=== PATIENT | female | born 1980 | race Caucasian/White ===

== ENCOUNTER → 2020-02-23 08:13 | Outpatient (BNVA) | payer BC, SELFPAY | PROVIDERS: Visit Provider Obstetrics & Gynecology | DX: N94.6 Dysmenorrhea, unspecified (principal) | CPT/HCPCS: 76830 ==

== ENCOUNTER 2020-04-12 08:16 | Day surgery (SDC) | payer BC, SELFPAY ==
[2020-04-10 09:57] VITALS: BMI 23.9
[2020-04-10 10:44] LABS: Add Urine Microscopic? NO
[2020-04-10 11:06] LABS: Basophils % 0.7 %; Eosinophils # 0.2 10^3/uL (0.0-0.8); Hematocrit 36.6 % (37.0-47.0); Hemoglobin 12.1 g/dL (11.5-15.3); Lymphocytes # 1.6 10^3/uL (0.8-4.8); Lymphocytes % 27.9 %; Mean Corpuscular HGB Conc 33.1 g/dL (30.0-36.0); Mean Corpuscular Hemoglobin 30.5 pg (28.0-34.0); Mean Corpuscular Volume 92.2 fL (81-99); Mean Platelet Volume 10.5 fL (7.4-10.4); Monocytes # 0.5 10^3/uL (0.2-0.9); Neutrophils # 3.35 10^3/uL (1.8-7.7); Neutrophils % 59.2 %; Nucleated Red Blood Cells % 0 %; Platelet Count 220 10^3/cmm (130-400); Red Blood Count 3.97 10^6/uL (4.1-5.3); Red Cell Distribution Width 12.6 % (12.1-15.1); White Blood Count 5.7 10^3/uL (4.0-10.0)
[2020-04-10 11:13] LABS: Bilirubin Urine Neg (NEGATIVE); Blood Urine Neg (Negative); Glucose Urine UA Norm (Normal); Ketones Urine Negative (Negative); Leukocyte Esterase Urine Negative (Negative); Nitrate Urine Negative (Negative); Protein Urine Neg (Negative); Urine Appearance Clear (CLEAR); Urine Color Straw (Yellow); Urobilinogen Urine Norm (Negative); pH Urine 5 (5-7)
[2020-04-10 11:21] LABS: Anion Gap 11.8 (5-19); Blood Urea Nitrogen 23 mg/dL (6-20); Calcium 9.2 mg/dL (8.5-10.5); Carbon Dioxide 26 mmol/L (22-29); Chloride 104 mmol/L (98-107); Glomerular Filtration Rate 93.6 mL/min (90-130); Glucose 91 mg/dL (65-115); Osmolality Calculated 280 mOsm/kg (285-295); Potassium 4.8 mmol/L (3.5-5.1); Sodium 137 mmol/L (136-145)
--- NOTE | 2020-04-10 11:25 | ANES.PREANE2 ---
Pre-Anesthetic Assessment Pre-Anesthetic Assessment: Height/Weight: Height 1.6 m Weight 61.235 kg Preop Diagnosis: Chronic pelvic pain, dysmenorrhea Proposed Procedure: Operation Date: 04/12/20 09:50 Proposed Procedures p Laparoscopy Diagnostic/46097 N94.2 R10.2(Not Applicable) - Octavio Rich MD Familial anesthetic complications: none Social: Social History: No alcohol and No tobacco Exam: Pre-Anes Outpt Exam: alert, oriented x 3, clear to auscultation bilaterally and regular rate & rhythm Airway: Cervical ROM: WNL MP: 1 Dentition: Full CV/HEM: CV/HEM: HTN and Palp Anesthetic Plan: ASA status: 1 Anesthesia: MAC Risk of > 500 ml blood loss (7ml/kg in children): No PFSH Anesthesia PFSH: Medical History Abnormal uterine bleeding (AUB) Pelvic pain diagnostic laparoscopy schedule for April Family History Denies family history of Diabetes Clotting disorder Hyperlipidemia Anesthesia complication Bleeding disorder Hypertension Stroke Social History (Updated 04/10/20 @ 08:21 by Archana Younger RN) Smoking and tobacco status: former smoker Quit status (tobacco): has quit using tobacco Year quit tobacco: 2017 Alcohol intake: current Alcohol intake frequency: holidays/special occasions only Alcohol type: hard liquor Data Anesthesia CBC & Chem 7: 04/10/20 10:15 04/10/20 10:15 Other Labs: Laboratory Results - last 48 hr 04/10/20 04/10/20 04/10/20 10:10 10:15 10:15 WBC 5.7 RBC 3.97 L Hgb 12.1 Hct 36.6 L MCV 92.2 MCH 30.5 MCHC 33.1 RDW 12.6 Plt Count 220 MPV 10.5 H Neut % (Auto) 59.2 Lymph % (Auto) 27.9 [place] % (Auto) 9.0 Eos % (Auto) 3.0 Baso % (Auto) 0.7 Neut # (Auto) 3.35 Lymph # (Auto) 1.6 [place] # (Auto) 0.5 Eos # (Auto) 0.2 Baso # (Auto) 0.0 Nucleated RBC % (auto) 0 Nucleated RBCs # 0.0 Sodium 137 Potassium 4.8 Chloride 104 Carbon Dioxide 26 Anion Gap 11.8 Creatinine 0.7 GFR Calculation 93.6 Glucose 91 Calcium 9.2 Urine Color Straw Urine Appearance Clear Urine pH 5 Ur Specific [place] 1.010 Urine Protein Neg Urine Glucose (UA) Norm Urine Ketones Negative Urine Blood Neg Urine Nitrate Negative Urine Bilirubin Neg Urine Urobilinogen Norm Ur Leukocyte Esterase Negative Cardiac Studies: No Data to Display
[2020-04-10 12:08] LABS: OR HCG Qualitative Urine Negative (Negative)
[2020-04-12] VITALS (8 sets, daily range): BP systolic 112–134; BP diastolic 70–89; PULSE 52–90; RESP 16–18; TEMP 36.2–36.6; O2SAT 100
[2020-04-12] MEDS: sodium chloride 0.9% 1,000 ML 30 ML IV (08:47)
[2020-04-12] MEDS: scopolamine 1.5 Patch 1 PATCH TRANSDERMA (08:48)
--- NOTE | 2020-04-12 08:59 | P.ANESUD_ITS ---
Pre-Anesthetic Update Pre-Anesthetic Assessment: Date of Surgery/Procedure: 04/12/20 Preop Merlyn gnosis: Chronic pelvic pain, dysmenorrhea Proposed Procedure: Operation Date: 04/12/20 09:50 Proposed Procedures p Laparoscopy Diagnostic/25701 N94.2 R10.2(Not Applicable) - Octavio Rich MD Any changes to Pre-Anesthetic Assessment?: No Last Intake: Intake Last Liquid Date 04/11/20 Last Liquid Time 22:00 Last Solid Date 04/11/20 Last Solid Time 22:00 Labs Last 48hrs: Laboratory Results - last 48 hr 04/10/20 04/10/20 04/10/20 10:10 10:10 10:15 WBC 5.7 RBC 3.97 L Hgb 12.1 Hct 36.6 L MCV 92.2 MCH 30.5 MCHC 33.1 RDW 12.6 Plt Count 220 MPV 10.5 H Neut % (Auto) 59.2 Lymph % (Auto) 27.9 [place] % (Auto) 9.0 Eos % (Auto) 3.0 Baso % (Auto) 0.7 Neut # (Auto) 3.35 Lymph # (Auto) 1.6 [place] # (Auto) 0.5 Eos # (Auto) 0.2 Baso # (Auto) 0.0 Nucleated RBC % (a uto) 0 Nucleated RBCs # 0.0 Sodium Potassium Chloride Carbon Dioxide Anion Gap BUN Creatinine GFR Calculation Glucose Calculated Osmolal ity Calcium Urine Color Straw Urine Appearance Clear Urine pH 5 Ur Specific Gravit y 1.010 Urine Protein Neg Urine Glucose (UA) Norm Urine Ketones Negative Urine Blood Neg Urine Nitrate Negative Urine Bilirubin Neg Urine Urobilinogen Norm Ur Leukocyte Yessica ase Negative Urine HCG, Qual Negative Blood Type Rho(D) Type Antibody Screen 04/10/20 04/10/20 10:15 10:15 WBC RBC Hgb Hct MCV MCH MCHC RDW Plt Count MPV Neut % (Auto) Lymph % (Auto) [place] % (Auto) Eos % (Auto) Baso % (Auto) Neut # (Auto) Lymph # (Auto) [place] # (Auto) Eos # (Auto) Baso # (Auto) Nucleated RBC % (a uto) Nucleated RBCs # Sodium 137 Potassium 4.8 Chloride 104 Carbon Dioxide 26 Anion Gap 11.8 BUN 23 H Creatinine 0.7 GFR Calculation 93.6 Glucose 91 Calculated Osmolal ity 280 L Calcium 9.2 Urine Color Urine Appearance Urine pH Ur Specific Gravit y Urine Protein Urine Glucose (UA) Urine Ketones Urine Blood Urine Nitrate Urine Bilirubin Urine Urobilinogen Ur Leukocyte Yessica ase Urine HCG, Qual Blood Type O Positive Rho(D) Type Positive Antibody Screen Negative Exam: Pre-Anes Outpt Exam: alert, oriented x 3, clear to auscultation bilaterally and regular rate & rhythm Other Pertinent Information: Other Pertinent Information: Will get updated b hcg Cardiac Studies: No Data to Display
[2020-04-12 09:12] LABS: OR HCG Qualitative Urine Negative (Negative)
--- NOTE | 2020-04-12 09:16 | W.PM.OPSUD ---
Surgery/Procedure H&P Update DATE OF PROCEDURE: April 12, 2020 DATE H&P PERFORMED: 04/10/20 H&P UPDATE INFORMATION: I have reviewed H&P completed within last 30 days, I have examined patient prior to procedure and No changes to prior documentation PREOP DIAGNOSIS: Chronic pelvic pain, dysmenorrhea PLANNED PROCEDURE: Operation Date: 04/12/20 09:50 Proposed Procedures p Laparoscopy Diagnostic/31003 N94.2 R10.2(Not Applicable) - Octavio Rihc MD
--- NOTE | 2020-04-12 10:19 | P.OP_ITS ---
Operative Report Date of procedure: April 12, 2020 Pre-op Diagnosis: Chronic pelvic pain, dysmenorrhea Post-op diagnosis: same Post-op Findings: Normal pelvic over Procedure Done: Diagnostic laparoscopy Surgeon: Octavio Rich Anesthesia: General Estimated blood loss (mL): 10 IV fluids (mL): 700 Urine output (mL): 100 Complications: none Findings: Normal pelvic organs, small 0.5 cm subserosal posterior Leiomyoma Condition: stable Disposition: PACU Brief History: 40-year-old female with chronic pelvic pain and dysmenorrhea Procedure: DESCRIPTION OF PROCEDURE: After informed consent, the patient was taken to the operating room where general anesthesia was administered. The patient was examined under anesthesia and found to have a normal uterus with normal adnexa. She was placed in the dorsal lithotomy position and prepped and draped in sterile fashion. Pre- Procedure Time-Out verifying the correct patient identity, correct procedure verified with consent, correct site and side, correct patient position, avail ability of correct implants and any special equipment or requirements was performed and acknowledge by the OR team. A weighted speculum was placed in the vagina, and the anterior lip of cervix was grasped with the single toothed tenaculum. A uterine manipulator was advanced into the endocervical. Tenaculum was removed after uterine manipulator was secured. The speculum was removed from the vagina. An intraumbilical incision was made with a scalpel. While tenting up on the abdomen, a Verres needle with sleeve was admitted into the intra-abdominal cavity. A saline drop test was performed and noted to be within normal limits. Pneumoperitoneum was attained with 4 liters of carbon dioxide. The Verres needle was removed. A 5 mm trocar and sleeve were admitted into the abdomen and laparoscopic confirmation of location was achieved, A second incision was made 3 cm above the symphysis pubis, and a 5 mm trocar and sleeve were admitted into the abdomen under direct, laparoscopic visualization without complication. A survey revealed normal abdominal anatomy but pelvic survey a small posterior subserosal leiomyoma,Approximately 0.5 cm otherwise normal uterus, left and right adnexa. No other pelvic pathology noted. A 5 mm blunt probe was advanced through the second trocar sleeve, and light manipulation of ovaries and uterus to assess the posterior aspects was performed. Carbon dioxide was allowed to escape from the abdomen. The instruments were removed, and skin cover with a bandage. The instruments were removed from the vagina, and excellent hemostasis was noted. The patient tolerated the procedure well, and sponge, lap and needle count were correct times two. The patient taken to the recovery room in good condition.
[2020-04-12] MEDS: fentaNYL 50 mcg/mL INJ 2mL IVP (10:36)
[2020-04-12] MEDS: HYDROcodone-acetaminophen 5-325 mg Tablet 1 TAB PO (11:03)
== END 2020-04-12 12:05 | disposition home or self-care (01) ==
PROVIDERS: Anesthesiology; PCP Nurse Practitioner Family; Visit Provider Obstetrics & Gynecology
PROC: (CPT 49320; principal; 2020-04-12 09:50)
DX: D25.2 Subserosal leiomyoma of uterus (principal); N94.6 Dysmenorrhea, unspecified; I10 Essential (primary) hypertension; Z87.891 Personal history of nicotine dependence
CPT/HCPCS: 49320; 12345; 36415; 80048; 81003; 81025; 84703; 85025; 86850; 86900; J0690; J2704; J3010; J3490; J7030

== ENCOUNTER → 2020-05-04 07:54 | Outpatient (BNVA) | payer BC, SELFPAY | PROVIDERS: PCP Nurse Practitioner Family; Visit Provider Licensed Practical Nurse | DX: M54.5 Low back pain (principal) | CPT/HCPCS: 99203 ==

== ENCOUNTER → 2020-05-23 09:17 | Outpatient (BNVA) | payer BC, SELFPAY | PROVIDERS: PCP Nurse Practitioner Family; Visit Provider Licensed Practical Nurse | DX: M54.5 Low back pain (principal); M54.9 Dorsalgia, unspecified; G89.29 Other chronic pain | CPT/HCPCS: 99213 ==

== ENCOUNTER 2020-05-31 13:20 | Outpatient (CLI) | payer BC, SELFPAY ==
--- NOTE | 2020-05-31 13:30 | XR_ITS ---
WS: [id number] LUMBAR SPINE FLEXION AND EXTENSION TECHNIQUE: 3 views of the lumbar spine: Lateral neutral, flexion, and extension views. CLINICAL INFORMATION: Low back pain COMPARISON: None. FINDINGS: Normal lumbar alignment on the neutral view. No instability on the flexion and extension views. XR/XR lumbar spine f/e only [id number] IMPRESSION: No instability on flexion-extension
== END 2020-05-31 13:21 | disposition home or self-care (01) ==
LOC: RADWPI 13:23
PROVIDERS: Family Provider Nurse Practitioner Family; PCP Nurse Practitioner Family; Visit Provider Licensed Practical Nurse
DX: M54.5 Low back pain (principal)
CPT/HCPCS: 72120

== ENCOUNTER → 2020-06-22 08:37 | Outpatient (BNVA) | payer BC, SELFPAY | PROVIDERS: Family Provider Nurse Practitioner Family; PCP Nurse Practitioner Family; Referring Provider Licensed Practical Nurse; Visit Provider Anesthesiology Pain Medicine | DX: M54.16 Radiculopathy, lumbar region (principal); F17.290 Nicotine dependence, other tobacco product, uncomplicated; Z79.891 Long term (current) use of opiate analgesic | CPT/HCPCS: 99203 ==

== ENCOUNTER → 2020-07-19 10:39 | Outpatient (BNVA) | payer BC, SELFPAY | PROVIDERS: Family Provider Nurse Practitioner Family; PCP Nurse Practitioner Family; Visit Provider Licensed Practical Nurse | DX: M54.5 Low back pain (principal); M79.604 Pain in right leg; M79.605 Pain in left leg; F17.290 Nicotine dependence, other tobacco product, uncomplicated | CPT/HCPCS: 99213 ==

== ENCOUNTER → 2020-08-21 13:42 | Outpatient (BNVA) | payer BC, SELFPAY | PROVIDERS: Family Provider Nurse Practitioner Family; PCP Nurse Practitioner Family; Visit Provider Specialist | DX: M46.1 Sacroiliitis, not elsewhere classified (principal); R20.0 Anesthesia of skin; R20.2 Paresthesia of skin; F17.200 Nicotine dependence, unspecified, uncomplicated | CPT/HCPCS: 20552; 95910; 99214 ==

== ENCOUNTER → 2021-02-27 08:25 | Outpatient (BNVA) | payer OTHER, SELFPAY | PROVIDERS: Family Provider Nurse Practitioner Family; PCP Nurse Practitioner Family; Visit Provider Specialist | DX: M54.5 Low back pain (principal); M46.1 Sacroiliitis, not elsewhere classified; R20.0 Anesthesia of skin; R20.2 Paresthesia of skin; Z71.89 Other specified counseling; F17.290 Nicotine dependence, other tobacco product, uncomplicated | CPT/HCPCS: 99214 ==

== ENCOUNTER → 2021-06-22 13:18 | Outpatient (BNVA) | payer OTHER, SELFPAY | PROVIDERS: Family Provider Nurse Practitioner Family; PCP Nurse Practitioner Family; Visit Provider Obstetrics & Gynecology | DX: Z12.4 Encounter for screening for malignant neoplasm of cervix (principal) | CPT/HCPCS: 87624 ==

== ENCOUNTER → 2022-06-25 13:28 | Outpatient (BNVA) | payer OTHER, SELFPAY | PROVIDERS: Family Provider Nurse Practitioner Family; PCP Nurse Practitioner Family; Visit Provider Obstetrics & Gynecology | DX: Z12.4 Encounter for screening for malignant neoplasm of cervix (principal); Z12.39 Encounter for other screening for malignant neoplasm of breast; Z01.419 Encounter for gynecological examination (general) (routine) without abnormal findings | CPT/HCPCS: 87624 ==

== ENCOUNTER 2022-07-09 13:24 | Outpatient (CLI) | payer OTHER, SELFPAY ==
--- NOTE | 2022-07-09 13:38 | MM_ITS ---
WS: [id number] BILATERAL 3D TOMOSYNTHESIS DIGITAL SCREENING MAMMOGRAPHY WITH CAD CLINICAL INFORMATION: Z12.39 - Encounter for other screening for malignant neop... HISTORY: Screening mammogram. Bilateral breast soreness COMPARISON: 2019 TECHNIQUE: Bilateral CC and MLO views. FINDINGS: The breasts are composed of heterogeneous fibroglandular density tissue, which can limit the detectio n of small underlying mass lesions. No suspicious mass, asymmetry, calcifications, or architectural d istortion. No evidence of malignancy. A few incidental punctate calcifications. MM/[place] [id number] IMPRESSION: BI-RADS: 2-Benign FOLLOW UP: 1 Year Follow-up Recommend return to annual screening mammography.
== END 2022-07-09 13:25 | disposition home or self-care (01) ==
PROVIDERS: PCP Nurse Practitioner Family; Visit Provider Obstetrics & Gynecology
DX: Z12.31 Encounter for screening mammogram for malignant neoplasm of breast (principal)
CPT/HCPCS: 77063; 77067

== ENCOUNTER 2022-09-15 10:56 | Emergency (ER) | payer OTHER, MEDICAID, SELFPAY ==
[2022-09-15 11:00] VITALS: BP 134/84; PULSE 84; RESP 16; TEMP 36.4; O2SAT 100
[2022-09-15 11:10] VITALS: BP 134/84; PULSE 84; RESP 16; TEMP 36.4; O2SAT 100
--- NOTE | 2022-09-15 11:27 | XRR_ITS ---
PROCEDURE INFORMATION: Exam: XR Right Shoulder Exam date and time: 09/15/2022 11:40 AM Age: 42 years old Clinical indication: Pain; Shoulder; Right; Additional info: Right shoulder pain TECHNIQUE: Imaging protocol: Radiologic exam of the Right shoulder. Views: 2 or more views. COMPARISON: CT cervical spin wo con* [id number] 10/04/2016 4:44 PM FINDINGS: Bones/joints: Osseous structures are intact. Negative for fracture. Joint spaces are preserved. Soft tissues: Normal. XR/XR shoulder RT min 2V* [id number] IMPRESSION: No acute findings.
--- NOTE | 2022-09-15 11:27 | XRR_ITS ---
PROCEDURE INFORMATION: Exam: XR Cervical Spine Exam date and time: 09/15/2022 11:42 AM Age: 42 years old Clinical indication: Neck pain; Additional info: Radiculopathy and neck pain TECHNIQUE: Imaging protocol: Radiologic exam of the cervical spine. Views: 2 or 3 views. COMPARISON: CT cervical spin wo con* [id number] 10/04/2016 4:44 PM FINDINGS: Bones/joints: Normal. No acute fracture. Normal alignment. Vertebral body and disc heights are preserved. Soft tissues: Unremarkable. XR/XR cervical spine fl/ex [id number] IMPRESSION: No acute findings.
[2022-09-15] MEDS: dexamethasone 10 mg/mL INJ IM (11:46)
[2022-09-15] MEDS: ketorolac 60 mg/2 mL INJ IM (11:48)
[2022-09-15] MEDS: orphenadrine 30 mg/mL Inj 2 mL 60 MG IM (11:48)
--- NOTE | 2022-09-15 12:37 | W.ED.EXTPRO ---
Documented by User: [email or web address] Crabtree 09/15/22 12:56 HPI - Extremity Problem General: Chief complaint: Extremity Injury, Upper Stated complaint: shoulder pain Time Seen by Provider: 09/15/22 10:58 History of Present Illness: Patient is a [id number] 42-year-old female that presents to the emergency department with complaints of right shoulder and neck pain. Patient reports that symptoms began after she was doing some heavy lifting on Friday. She woke up Friday morning with some achiness in her shoulder and some neck pain just off midline on the right trapezius. Patient states that she is taken ibuprofen, tramadol, Flexeril without any relief. Patient describes the pain as burning sensation and spasm Patient reports a history of migraines, fibromyalgia, arrhythmias, arthritis Associated symptoms: Deny chest pain, fever(s) or rash Review of Systems General: Reports: 10 or more systems reviewed and unremarkable except in HPI and below Const: Denies: fever(s), chills, change in appetite, change in weight, fatigue or malaise Eyes: Denies: change in vision, eye discomfort, eye discharge or eye redness ENMT: Denies: throat pain, enlarged tonsils, odynophagia, hoarseness, ear or mastoid pain, ear discharge, change in hearing, tinnitus, nasal discharge, nasal congestion, post nasal drip or sinus pain Card: Denies: chest pain, palpitations, irregular heart rhythm, edema, dyspnea on exertion, orthopnea or leg pain with exertion Resp: Denies: dyspnea, productive cough, non-productive cough, wheezing, stridor or chest congestion GI: Denies: abdominal pain, nausea, vomiting, dysphagia, diarrhea, constipation, bloating, GI cramping or hematochezia : Denies: flank pain, difficulty voiding, dysuria, urinary frequency, urinary urgency, urinary hesitancy, oliguria or hematuria Musc: Denies: neck pain, back pain, extremity pain, joint pain, joint swelling, joint redness, joint warmth or muscle weakness Skin/Breast: Denies: rash, pruritus, erythema, photosensitivity or new lesions Neuro: Denies: headache(s), numbness in extremities, weakness in extremities, sensory changes, lack of coordination, difficulty walking, frequent falls, dizziness, confusion, Slurred speech present, difficulty communicating thoughts, seizure-like activity or involuntary movements Endo: Denies: polyuria, polydipsia or tired all the time Sukhwinder/Lymph: Denies: easy bruising or easy bleeding PFSH ED PFSH: Medical History Abnormal uterine bleeding (AUB) Leg pain, bilateral Low back pain of over 3 months duration Pelvic pain diagnostic laparoscopy schedule for April Surgical History H/O dilation and curettage x2 H/O laparoscopy Family History (Updated 06/25/22 @ 13:23 by Archana Younger RN) Denies family history of Colon cancer Ovarian cancer Diabetes Clotting disorder Heart disease Hyperlipidemia Breast cancer Anesthesia complication Bleeding disorder Hypertension Uterine cancer Thyroid condition Stroke Social History (Updated 06/25/22 @ 13:23 by Archana Younger RN) Smoking and tobacco status: former smoker Physical Exam Narrative: EXAM NARRATIVE: No acute distress Alert x3 Afebrile vital signs stable Const: COMMON NORMALS: no acute distress, average body habitus and patient oriented x3 HENMT: COMMON NORMALS: normocephalic and atraumatic HEAD & SCALP: normocephalic and atraumatic FACE & SINUS: normal facial exam Eye: COMMON NORMALS: Equal, round and reactive pupils present, EOMs intact bilaterally and conjunctivae normal CONJUNCTIVA: Yes conjunctivae normal PUPIL: Yes Equal, round and reactive pupils present Neck/C-Spine: GENERAL: Yes normal visual inspection, Yes trachea midline and Yes tender CERVICAL SPINE: Yes cervical ROM normal, Yes Paracervical muscle tenderness right>left and Yes Trapezius muscle tenderness bilateral OTHER: Patient reports a numbness and tingling that radiates along the C5/C6 nerve distribution of the right upper extremity She is tender over the trapezius Patient has 5/5 strength in intrinsics, 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, 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, triceps Resp: COMMON NORMALS: normal respiratory effort, No retractions and No use of accessory muscles Cardio: COMMON NORMALS: regular rate and regular rhythm RATE: regular rate RHYTHM: regular rhythm GI: COMMON NORMALS: Normal to inspection, nondistended, normoactive bowel sounds present Extremity: NARRATIVE EXTREMITY EXAM: Right upper extremity: Skin is clean dry and intact Mild crepitus to anterior right shoulder Full active range of motion of shoulder, elbow, wrist Active flexion and extension of the joints without difficulty Patient is able to give a thumbs up, make an okay sign, cross fingers, abduct fingers and make a fist Sensations intact to light touch at radial, median, ulnar nerve distribution Cap refill less than 3 seconds and radial pulses palpable Neuro: COMMON NORMALS: patient oriented x3 Course Vital Signs: Vital signs: Vital Signs Temperature 97.6 F 09/15/22 11:10 Pulse Rate 77 09/15/22 13:09 Respiratory Rate 18 09/15/22 13:09 Blood Pressure 134/84 09/15/22 11:10 Pulse Oximetry 99 09/15/22 13:09 Oxygen Delivery Me thod 09/15/22 11:10 MDM - Extremity (Nontraumatic) Medical Decision Making Patient was evaluated in the emergency department today for complaints of neck and shoulder pain. Patient did undergo XR imaging of the neck and shoulder to assess for any injury, effusions, bony abnormality. No acute findings noted. Differential diagnosis includes musculoskeletal complaints, muscle spasms, nerve root impingement Cervical strain, muscle spasm, radicular symptoms were present. I treated her with Toradol, Norflex, Decadron. Symptoms improved greatly. Patient never did exhibit any restricted joint mobility nor any weakness in her extremities. I did explain to the patient I did not think she warranted any further diagnostics at this time. Patient is agreeable. Patient is can go home on a new muscle relaxer, with some prednisone and Toradol. If patient does not better in 7 to 10 days or is getting worse then she will need to follow-up sooner. Lab Data Radiology Impressions Shoulder X-Ray 09/15/22 11:27 IMPRESSION: No acute findings. Spine Flexion/Extension X-Ray 09/15/22 11:27 IMPRESSION: No acute findings. Discharge Plan Discharge Patient Disposition: Home Clinical Impression: Sprain of cervical neck, Cervical paraspinal muscle spasm Condition: Stable Prescriptions: New prednisone 50 mg tablet 50 mg PO DAILY 5 Days Qty: 5 0RF ketorolac 10 mg tablet 10 mg PO TID PRN (Reason: pain) 5 Days Qty: 20 0RF methocarbamol 500 mg tablet 500 mg PO Q6H Qty: 60 0RF No Action rizatriptan PO .prn Zyrtec 10 mg capsule 20 mg PO DAILY cyclobenzaprine 10 mg tablet 10 mg PO TID PRN (Reason: Anxiety) ibuprofen 800 mg tablet 800 mg PO TID PRN (Reason: Pain) tramadol [Ultram] 50 mg tablet 50 mg PO DAILY PRN (Reason: Pain) metoprolol succinate 50 mg capsule,sprinkle,ER 24hr 50 mg PO DAILY alprazolam [Xanax] 0.5 mg tablet 0.25 mg PO BID PRN thrive chocolate lifestyle mix as directed Discharge Orders: Discharge ED (Routine); Ordered 09/15/22 Ordered By: Digna Lynn Referrals: Jonas,CASI Lunsford [Primary Care Provider] - Discharge Diet: Advance as tolerated Discharge Activity: Resume usual activity Patient Instructions: Cervical Strain (ED), Acute Neck Pain (ED), Exercise Safety (ED), Pain Management Activity Restrictions/Additional Instructions: I have prescribed you Toradol, Robaxin, prednisone Taking Toradol, do not take ibuprofen or naproxen Taking Robaxin do not take Flexeril. When taking the Robaxin, it is written to take 1 tablet every 4-6 hours. You can actually take up to 2 but this will likely make you more sleepy. Use a heating pad or ice, whichever is more comfortable, to help sooth those sore muscles Gentle exercise/stretching If you are not better in 7 to 10 days or if you are getting worse, you need to be reevaluated. If you develop any weakness in your upper extremities you need to be reevaluated. Stand Alone Forms: Work/School Release Coding Level of Care Code ED Hearing Health Technician for Chg Fwd Exam Detailed Medical Decision Making Low Complexity Documented by User: Jj Pimentel DO 09/16/22 06:07 HPI - Extremity Problem General: Chief complaint: Extremity Injury, Upper Stated complaint: shoulder pain Time Seen by Provider: 09/15/22 10:58 PFS ED PFSH: Medical History Abnormal uterine bleeding (AUB) Leg pain, bilateral Low back pain of over 3 months duration Pelvic pain diagnostic laparoscopy schedule for April Surgical History H/O dilation and curettage x2 H/O laparoscopy Family History (Updated 06/25/22 @ 13:23 by Archana Younger RN) Denies family history of Colon cancer Ovarian cancer Diabetes Clotting disorder Heart disease Hyperlipidemia Breast cancer Anesthesia complication Bleeding disorder Hypertension Uterine cancer Thyroid condition Stroke Social History (Updated 06/25/22 @ 13:23 by Archana Younger RN) Smoking and tobacco status: former smoker Course Vital Signs: Vital signs: Vital Signs Temperature 97.6 F 09/15/22 11:10 Pulse Rate 77 09/15/22 13:09 Respiratory Rate 18 09/15/22 13:09 Blood Pressure 134/84 09/15/22 11:10 Pulse Oximetry 99 09/15/22 13:09 Oxygen Delivery Me thod 09/15/22 11:10 MDM - Extremity (Nontraumatic) Medical Decision Making Patient was evaluated in the emergency department today for complaints of neck and shoulder pain. Patient did undergo XR imaging of the neck and shoulder to assess for any injury, effusions, bony abnormality. No acute findings noted. Differential diagnosis includes musculoskeletal complaints, muscle spasms, nerve root impingement Cervical strain, muscle spasm, radicular symptoms were present. I treated her with Toradol, Norflex, Decadron. Symptoms improved greatly. Patient never did exhibit any restricted joint mobility nor any weakness in her extremities. I did explain to the patient I did not think she warranted any further diagnostics at this time. Patient is agreeable. Patient is can go home on a new muscle relaxer, with some prednisone and Toradol. If patient does not better in 7 to 10 days or is getting worse then she will need to follow-up sooner. Chart reviewed and patient discussed with midlevel. Agree with assessment and plan. Lab Data Radiology Impressions Shoulder X-Ray 09/15/22 11:27 IMPRESSION: No acute findings. Spine Flexion/Extension X-Ray 09/15/22 11:27 IMPRESSION: No acute findings. Discharge Plan Discharge Patient Disposition: Home Clinical Impression: Sprain of cervical neck, Cervical paraspinal muscle spasm Condition: Stable Prescriptions: New prednisone 50 mg tablet 50 mg PO DAILY 5 Days Qty: 5 0RF ketorolac 10 mg tablet 10 mg PO TID PRN (Reason: pain) 5 Days Qty: 20 0RF methocarbamol 500 mg tablet 500 mg PO Q6H Qty: 60 0RF No Action rizatriptan PO .prn Zyrtec 10 mg capsule 20 mg PO DAILY cyclobenzaprine 10 mg tablet 10 mg PO TID PRN (Reason: Anxiety) ibuprofen 800 mg tablet 800 mg PO TID PRN (Reason: Pain) tramadol [Ultram] 50 mg tablet 50 mg PO DAILY PRN (Reason: Pain) metoprolol succinate 50 mg capsule,sprinkle,ER 24hr 50 mg PO DAILY alprazolam [Xanax] 0.5 mg tablet 0.25 mg PO BID PRN thrive chocolate lifestyle mix as directed Discharge Orders: Discharge ED (Routine); Ordered 09/15/22 Ordered By: Digna Lynn Referrals: Jonas,CASI Lunsford [Primary Care Provider] - Discharge Diet: Advance as tolerated Discharge Activity: Resume usual activity Patient Instructions: Cervical Strain (ED), Acute Neck Pain (ED), Exercise Safety (ED), Pain Management Activity Restrictions/Additional Instructions: I have prescribed you Toradol, Robaxin, prednisone Taking Toradol, do not take ibuprofen or naproxen Taking Robaxin do not take Flexeril. When taking the Robaxin, it is written to take 1 tablet every 4-6 hours. You can actually take up to 2 but this will likely make you more sleepy. Use a heating pad or ice, whichever is more comfortable, to help sooth those sore muscles Gentle exercise/stretching If you are not better in 7 to 10 days or if you are getting worse, you need to be reevaluated. If you develop any weakness in your upper extremities you need to be reevaluated. Stand Alone Forms: Work/School Release Coding Level of Care Code ED Hearing Health Technician for Roverto Fwd Exam Detailed Medical Decision Making Low Complexity
[2022-09-15 13:09] VITALS: PULSE 77; RESP 18; O2SAT 99
== END 2022-09-15 13:10 | disposition home or self-care (01) ==
PROVIDERS: Emergency Provider Nurse Practitioner; PCP Nurse Practitioner Family
DX: S13.4XXA Sprain of ligaments of cervical spine, initial encounter (principal); M62.838 Other muscle spasm; Z87.891 Personal history of nicotine dependence; X50.0XXA Overexertion from strenuous movement or load, initial encounter
CPT/HCPCS: 72040; 73030; 96372; 99284; J1100; J1885; J2360

== ENCOUNTER 2023-07-30 15:12 | Outpatient (CLI) | payer MEDICAID, SELFPAY ==
--- NOTE | 2023-07-30 15:52 | MM_ITS ---
WS: [id number] BILATERAL 3D TOMOSYNTHESIS DIGITAL SCREENING MAMMOGRAPHY WITH CAD CLINICAL INFORMATION: SCREENING HISTORY: Screening mammogram. No current complaints. COMPARISON: 2021 TECHNIQUE: Bilateral CC and MLO views. FINDINGS: The breasts are composed of nodular heterogeneous fibroglandular density tissue, which can limit the detection of small underlying mass lesions. No suspicious mass, asymmetry, calcifications, or archite ctural distortion. No evidence of malignancy. A few incidental punctate calcifications. IMPRESSION: MM/[place] [id number] BI-RADS: 2-Benign FOLLOW UP: 1 Year Follow-up Recommend return to annual screening mammography.
== END 2023-07-30 15:13 | disposition home or self-care (01) ==
PROVIDERS: PCP Nurse Practitioner Family; Visit Provider Nurse Practitioner Family
DX: Z12.31 Encounter for screening mammogram for malignant neoplasm of breast (principal)
CPT/HCPCS: 77063; 77067

== ENCOUNTER → 2024-01-08 10:45 | Outpatient (BNVA) | payer MEDICAID, SELFPAY | PROVIDERS: PCP Nurse Practitioner Family; Visit Provider Obstetrics & Gynecology | DX: Z12.4 Encounter for screening for malignant neoplasm of cervix (principal); B37.31 Acute candidiasis of vulva and vagina; Z01.419 Encounter for gynecological examination (general) (routine) without abnormal findings | CPT/HCPCS: 87624 ==

== ENCOUNTER 2024-03-06 18:58 | Inpatient (IN) | payer MEDICAID, SELFPAY ==
[2024-03-06 19:13] VITALS: BP 128/85; PULSE 76; RESP 17; TEMP 36.8; O2SAT 99; BMI 23.9
[2024-03-06 19:50] VITALS: BP 111/79; PULSE 77; RESP 22; O2SAT 98
--- NOTE | 2024-03-06 20:07 | ED_ITS ---
HPI - General Adult 2 General: Chief complaint: General Medical Stated complaint: Withdraw Time Seen by Provider: 03/06/24 19:29 History of Present Illness: 44-year-old female who evidently has bee n on morphine for quite some time. Her last use was around 2 days ago she says. She has become ill with diarrhea, chills, body aches, spasms, and anxiety. She has had the symptoms before with prior episodes of withdrawal, but not this bad. Other health problems include migraines, fibromyalgia. She has become increasingly depressed over the last few weeks, and is quite tearful. Associated symptoms: Reports headache(s) and nausea; Deny chest pain, dyspnea, rash or vomiting Review of Systems 2 Const: Reports: body aches, change in appetite and fatigue; Denies: fever(s) Card: Denies: chest pain Resp: Denies: dyspnea or productive cough GI: Reports: abdominal pain, nausea and diarrhea; Denies: vomiting Musc: Reports: back pain Skin/Breast: Denies: rash Neuro: Reports: headache(s) Psych: Reports: anxiety and depression PFS ED 2 PFSH: Medical History Leg pain, bilateral Low back pain of over 3 months duration Abnormal uterine bleeding (AUB) Pelvic pain diagnostic laparoscopy schedule for April Surgical History H/O dilation and curettage x2 H/O laparoscopy Family History Denies family history of Colon cancer Ovarian cancer Diabetes Clotting disorder Heart disease Hyperlipidemia Breast cancer Anesthesia complication Bleeding disorder Hypertension Uterine cancer Thyroid disease Stroke Social History Smoking and tobacco/nicotine status: former use of tobacco/nicotine Substance/Drug Use: never Physical Exam 2 Const: GENERAL APPEARANCE: cooperative, anxious and ill appearing; not frail appearing HENMT: COMMON NORMALS: normocephalic, atraumatic and Normal external nose present HEAD & SCALP: normocephalic and atraumatic FACE & SINUS: normal facial exam and face symmetric NOSE: Normal external nose present Eye: COMMON NORMALS: Equal, round and reactive pupils present and EOMs intact bilaterally PUPIL: Yes Equal, round and reactive pupils present Neck/C-Spine: GENERAL: Yes trachea midline Chest: CHEST: Yes Symmetrical chest wall rise Resp: COMMON NORMALS: normal respiratory effort, No retractions, No use of accessory muscles and clear to auscultation bilaterally AUSCULTATION: clear to auscultation bilaterally Cardio: COMMON NORMALS: regular rate and regular rhythm RATE: regular rate RHYTHM: regular rhythm GI: COMMON NORMALS: Normal to inspection, nondistended, normoactive bowel sounds present Extremity: COMMON NORMALS: no pedal edema Neuro: MARINE COMA SCALE: document GCS findings Marine coma scale eye opening: Spontaneous [place] coma scale verbal response: Orientated [place] coma scale motor response: [place]bey commands Marine coma scale total score: 15 S ENSORY EXAM: Yes extremities (intact) Psych: COMMON NORMALS: speech normal SPEECH: Yes normal speech Skin: COMMON NORMALS: no rashes or lesions noted GENERAL SKIN EXAM: no rashes or lesions noted Course 2 Vital Signs: Vital signs: Vital Signs Temperature 98.2 F 03/06/24 19:13 Pulse Rate 82 03/06/24 22:43 Respiratory Rate 18 03/06/24 22:43 Blood Pressure 118/72 03/06/24 22:43 Pulse Oximetry 99 03/06/24 22:43 Oxygen Delivery Me thod Room Air 03/06/24 22:43 [facility] - General Adult Medical Decision Making 44-year-old female presenting with some withdrawal symptoms. She also has worsening depression. She is quite tearful on exam. She will not give me a clear answer regarding suicidality. I believe she is at risk, especially given her more acute problem. I spoke with psychiatry. He is willing to admit. Potassium was a bit low, and is repleted in the emergency department. Other laboratory is not remarkable. Medically, she is quite stable. Lab Data 03/06/24 20:04 03/06/24 20:04 Laboratory Results WBC 9.51 10^3/uL (3.29-11.43) 03/06/24 20:04 RBC 4.34 10^6/uL (3.85-5.65) 03/06/24 20:04 Hgb 12.90 g/dL (11.27-16.99) 03/06/24 20:04 Hct 38.7 % (36-47) 03/06/24 20:04 MCV 89.2 fl (85-98) 03/06/24 20:04 MCH 29.7 pg (27-33) 03/06/24 20:04 MCHC 33.3 g/dL (30-55) 03/06/24 20:04 RDW 12.2 % (12.1-15.1) 03/06/24 20:04 Plt Count 264 10^3/cmm (157-399) 03/06/24 20:04 MPV 9.8 fL (7.4-10.4) 03/06/24 20:04 Neut % (Auto) 77.5 % 03/06/24 20:04 Lymph % (Auto) 13.7 % 03/06/24 20:04 [place]ane % (Auto) 8.1 % 03/06/24 20:04 Eos % (Auto) 0.3 % 03/06/24 20:04 Baso % (Auto) 0.1 % 03/06/24 20:04 Neut # (Auto) 7.37 10^3/uL (1.8-7.7) 03/06/24 20:04 Lymph # (Auto) 1.3 10^3/uL (0.8-4.8) 03/06/24 20:04 Crane # (Auto) 0.8 10^3/uL (0.2-0.9) 03/06/24 20:04 Eos # (Auto) 0.0 10^3/uL (0.0-0.8) 03/06/24 20:04 Baso # (Auto) 0.0 10^3/uL (0.0-0.1) 03/06/24 20:04 Nucleated RBC % (auto) 0 % 03/06/24 20:04 Nucleated RBCs # 0.0 /100WBC 03/06/24 20:04 Sodium 138 mmol/L (136-145) 03/06/24 20:04 Potassium 3.3 mmol/L (3.5-5.1) L 03/06/24 20:04 Chloride 102 mmol/L (98-107) 03/06/24 20:04 Carbon Dioxide 23 mmol/L (22-29) 03/06/24 20:04 Anion Gap 16.3 (5-19) 03/06/24 20:04 BUN 17 mg/dL (6-20) 03/06/24 20:04 Creatinine 0.6 mg/dL (0.5-0.9) 03/06/24 20:04 GFR Calculation 109.6 mL/min (90-130) 03/06/24 20:04 Glucose 94 mg/dL (65-115) 03/06/24 20:04 Calculated Osmolality 287 mOsm/kg (285-295) 03/06/24 20:04 Lactic Acid 0.8 mmol/L (0.5-2.2) 03/06/24 20:04 Calcium 9.4 mg/dL (8.5-10.5) 03/06/24 20:04 Total Bilirubin 0.4 mg/dL (0.15-1.2) 03/06/24 20:04 AST 25 U/L (0-32) 03/06/24 20:04 ALT 19 U/L (0-33) 03/06/24 20:04 Alkaline Phosphatase 64 U/L (35-105) 03/06/24 20:04 C-Reactive Protein 4.6 mg/L (0.0-4.9) 03/06/24 20:04 Total Protein 7.6 g/dL (6.6-8.7) 03/06/24 20:04 Albumin 4.5 g/dL (3.5-5.2) 03/06/24 20:04 Globulin 3.1 g/dL (1.3-4.6) 03/06/24 20:04 Lipase 22 U/L (13-60) 03/06/24 20:04 HCG, Qual Negative (Negative) 03/06/24 20:04 Urine Color Yellow (Yellow) 03/06/24 20:24 Urine Appearance Clear (CLEAR) 03/06/24 20:24 Urine pH 5 (5-7) 03/06/24 20:24 Ur Specific [place] 1.015 (1.005-1.030) 03/06/24 20:24 Urine Protein Trace (Negative) 03/06/24 20:24 Urine Glucose (UA) Norm (Normal) 03/06/24 20:24 Urine Ketones 2+ (Negative) H 03/06/24 20:24 Urine Blood 3+ (Negative) H 03/06/24 20:24 Urine Nitrate Negative (Negative) 03/06/24 20:24 Urine Bilirubin Neg (Negative) 03/06/24 20:24 Urine Urobilinogen Neg mg/dL (Negative) 03/06/24 20:24 Ur Leukocyte Esterase Negative (Negative) 03/06/24 20:24 Urine RBC 0-4 /hpf (0-2) H 03/06/24 20:24 Urine WBC 5-10 /hpf (0-5) H 03/06/24 20:24 Ur Squamous Epith Cells 5-10 /hpf (0-5) H 03/06/24 20:24 Amorphous Sediment Not Reportable 03/06/24 20:24 Urine Bacteria 2+ /hpf (NONE) H 03/06/24 20:24 Hyaline Casts 0-4 /lpf H 03/06/24 20:24 Urine Mucus 2+ /hpf 03/06/24 20:24 Salicylates < 0.3 mg/dL (3-10) L 03/06/24 20:04 Urine Opiates Screen Negative ng/mL (Negative) 03/06/24 20:24 Acetaminophen < 5.0 ug/mL (10-30) L 03/06/24 20:04 Ur Barbiturates Screen Negative ng/mL (Negative) 03/06/24 20:24 Ur Phencyclidine Scrn Negative ng/mL (Negative) 03/06/24 20:24 Ur Amphetamines Screen Negative ng/mL (Negative) 03/06/24 20:24 U Benzodiazepines Scrn Positive ng/mL (Negative) H 03/06/24 20:24 Urine Cocaine Screen Negative ng/mL (Negative) 03/06/24 20:24 U Marijuana (THC) Screen Positive ng/mL (Negative) H 03/06/24 20:24 Ethyl Alcohol < 10 mg/dL (0-10) 03/06/24 20:04 All radiology interpretation(s) finalized by discharge Discharge Plan Discharge Patient Disposition: Admitted As Inpatient Admit Provider: Javi Watkins Clinical Impression: Depression Condition: Stable Coding Level of Care Code ED [employer] for [employer]
[2024-03-06] MEDS: sodium chloride 0.9% 1,000 ML 999 ML IV (20:14)
[2024-03-06] MEDS: ketorolac 30 mg/mL INJ IVP (20:14)
[2024-03-06] MEDS: ondansetron 2 mg/ML SDV 2 mL 4 MG IVP (20:14)
[2024-03-06 20:21] LABS: Basophils % 0.1 %; Eosinophils % 0.3 %; Hematocrit 38.7 % (36-47); Lymphocytes # 1.3 10^3/uL (0.8-4.8); Lymphocytes % 13.7 %; Mean Corpuscular HGB Conc 33.3 g/dL (30-55); Mean Corpuscular Hemoglobin 29.7 pg (27-33); Mean Corpuscular Volume 89.2 fl (85-98); Mean Platelet Volume 9.8 fL (7.4-10.4); Monocytes # 0.8 10^3/uL (0.2-0.9); Monocytes % 8.1 %; Neutrophils # 7.37 10^3/uL (1.8-7.7); Neutrophils % 77.5 %; Nucleated Red Blood Cells % 0 %; Platelet Count 264 10^3/cmm (157-399); Red Blood Count 4.34 10^6/uL (3.85-5.65); Red Cell Distribution Width 12.2 % (12.1-15.1); White Blood Count 9.51 10^3/uL (3.29-11.43)
[2024-03-06 20:37] LABS: HCG, Serum Qual Negative (Negative)
[2024-03-06 20:38] LABS: Lactic Sepsis W/Reflex 0.8 mmol/L (0.5-2.2)
[2024-03-06 20:39] LABS: Alanine Aminotransferase 19 U/L (0-33); Albumin Level 4.5 g/dL (3.5-5.2); Alkaline Phosphatase 64 U/L (35-105); Anion Gap 16.3 (5-19); Aspartate Amino Transferase 25 U/L (0-32); Blood Urea Nitrogen 17 mg/dL (6-20); C Reactive Protein 4.6 mg/L (0.0-4.9); Calcium 9.4 mg/dL (8.5-10.5); Carbon Dioxide 23 mmol/L (22-29); Chloride 102 mmol/L (98-107); Creatinine Clr Calc Pharmacy 107.8542; Globulin 3.1 g/dL (1.3-4.6); Glomerular Filtration Rate 109.6 mL/min (90-130); Glucose 94 mg/dL (65-115); Lipase 22 U/L (13-60); Osmolality Calculated 287 mOsm/kg (285-295); Potassium 3.3 mmol/L (3.5-5.1); Sodium 138 mmol/L (136-145); Total Bilirubin 0.4 mg/dL (0.15-1.2); Total Protein 7.6 g/dL (6.6-8.7)
[2024-03-06 20:41] LABS: Acetaminophen < 5.0 ug/mL (10-30); Alcohol Level < 10 mg/dL (0-10); Salicylate < 0.3 mg/dL (3-10)
[2024-03-06 21:05] LABS: Amphetamines Screen Urine Negative (Negative); Barbiturates Screen Urine Negative (Negative); Benzodiazepines Screen Urine Positive (Negative); Cocaine Screen Urine Negative (Negative); Opiate Screen Urine Negative (Negative); PCP Screen Urine Negative (Negative); THC Screen Urine Positive (Negative)
[2024-03-06 21:16] LABS: Add Urine Culture? Yes; Add Urine Microscopic? YES; Bacteria Urine 2+ /hpf; Bilirubin Urine Neg (Negative); Blood Urine 3+ (Negative); Glucose Urine UA Norm (Normal); Hyaline Casts Urine 0-4 /lpf; Ketones Urine 2+ (Negative); Leukocyte Esterase Urine Negative (Negative); Mucus Urine 2+ /hpf; Nitrate Urine Negative (Negative); Protein Urine Trace (Negative); RBC Urine 0-4 /hpf (0-2); Specific Gravity, Urine 1.015 (1.005-1.030); Urine Appearance Clear (CLEAR); Urine Color Yellow (Yellow); Urobilinogen Urine Neg (Negative); pH Urine 5 (5-7)
[2024-03-06] MEDS: LORazepam 2 mg/mL INJ 1 mL 1 MG IVP (21:23)
[2024-03-06] MEDS: potassium chloride oral liq 20 mEq/15 mL UDC 40 MEQ PO (21:24)
[2024-03-06 21:30] VITALS: BP 126/80; PULSE 82; RESP 18; O2SAT 98
[2024-03-06 22:00] VITALS: BP 128/85; PULSE 80; RESP 21; O2SAT 100
[2024-03-06 22:43] VITALS: BP 118/72; PULSE 82; RESP 18; O2SAT 99
[2024-03-07 00:01] VITALS: BP 122/78; PULSE 71; RESP 18; TEMP 36.8; O2SAT 100
--- NOTE | 2024-03-07 02:38 | PC.NURSE ---
pt arrived to NPU by wheelchair at 0000 on a voluntary hold. Pt states that she is here because the past 9 months have been hard for her. Pt stated that he her dad in June 2023, she has been getting into arguments with her mom who she lives with and just recently her boyfriend told her that he does not want to her. Pt states that she is currently trying to withdrawal from opioids and is having generalized body aches, nausea and diarrhea. pt denies SI/HI/AVH during admission. Pt was dressed into NPU scrubs and no skin issues were noted. Pt was orientated to the unit and is now observed resting in bed quietly with eyes closed. Behavioral monitoring continues
[2024-03-07 06:00] VITALS: BP 117/79; PULSE 72; RESP 18; TEMP 36.7; O2SAT 99
[2024-03-07] MEDS: nicotine 21 mg Patch 1 PATCH TRANSDERMA (07:22)
[2024-03-07] MEDS: metoprolol tartrate 50 mg Tablet PO (08:21)
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
[2024-03-07] MEDS: buprenorphine-naloxone 4-1 mg Film 2 EACH SUBLINGUAL ×2 (13:49→21:25)
[2024-03-07] MEDS: ALPRAZolam 0.5 mg Tablet PO ×2 (13:52→23:00)
[2024-03-07 14:00] VITALS: BP 127/86; PULSE 63; RESP 17; TEMP 36.7; O2SAT 100
[2024-03-07] MEDS: ibuprofen 800 mg tablet PO (14:06)
[2024-03-07] MEDS: nicotine 2 mg Gum BUCCAL ×2 (16:04→18:37)
[2024-03-07] MEDS: duloxetine 30 mg Capsule PO (21:25)
[2024-03-07] MEDS: nicotine 4 mg lozenge MUCOUS MEM (21:27)
[2024-03-07] MEDS: cyclobenzaprine 10 mg Tablet PO (21:27)
[2024-03-07] MEDS: blistex lip oint 7 gm Tube 1 APPLIC TOPICAL (21:27)
[2024-03-07 21:57] VITALS: BP 113/75; PULSE 64; RESP 18; TEMP 36.5; O2SAT 99
[2024-03-08 06:00] VITALS: BP 102/66; PULSE 73; RESP 16; TEMP 36.6; O2SAT 100
[2024-03-08] MEDS: buprenorphine-naloxone 4-1 mg Film 2 EACH SUBLINGUAL (08:23)
[2024-03-08] MEDS: metoprolol tartrate 50 mg Tablet PO (08:23)
[2024-03-08] MEDS: nicotine 21 mg Patch 1 PATCH TRANSDERMA (08:24)
[2024-03-08] MEDS: duloxetine 30 mg Capsule PO (08:27)
[2024-03-08] MEDS: ALPRAZolam 0.5 mg Tablet PO (09:24)
[2024-03-08] MEDS: ondansetron 4 MG Tablet PO (12:54)
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
[2024-03-08 15:28] VITALS: BP 102/66; PULSE 73; RESP 16; TEMP 36.6; O2SAT 100
== END 2024-03-08 15:45 | disposition home or self-care (01) | DRG 881 ==
LOC: ER 20:27 → NP 22:29
PROVIDERS: Admitting Provider Psychiatry & Neurology Psychiatry; Emergency Provider Emergency Medicine; PCP Nurse Practitioner Family; Visit Provider Psychiatry & Neurology Psychiatry
DX: F32.A Depression, unspecified (principal); F11.20 Opioid dependence, uncomplicated; R45.851 Suicidal ideations; F41.0 Panic disorder [episodic paroxysmal anxiety]; M54.9 Dorsalgia, unspecified
CPT/HCPCS: 80053; 80306; 80307; 81001; 83605; 83690; 84703; 85025; 86140; 87086; 96374; 96375; 97165; 99285; J0573; J1885; J2060; J2405; J7030; Q0162

== ENCOUNTER 2024-03-27 12:32 | Emergency (ER) | payer MEDICAID, SELFPAY ==
[2024-03-27 12:52] VITALS: BP 103/71; PULSE 54; RESP 14; TEMP 36.9; O2SAT 98
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
[2024-03-27 14:57] VITALS: BP 126/62; PULSE 76; RESP 15; O2SAT 97
== END 2024-03-27 14:33 | disposition home or self-care (01) ==
PROVIDERS: Emergency Provider Physician Assistant; PCP Nurse Practitioner Family
DX: S00.83XA Contusion of other part of head, initial encounter (principal); Y04.2XXA Assault by strike against or bumped into by another person, initial encounter; Z87.891 Personal history of nicotine dependence
CPT/HCPCS: 70450; 70486; 72125; 99284